=== PATIENT | male | born 1945 | race Caucasian/White ===

== ENCOUNTER 2022-01-29 12:48 | Emergency (ER) | payer MEDICARE, SELFPAY ==
--- NOTE | 2022-01-29 12:55 | XR_ITS ---
FINAL REPORT CLINICAL HISTORY: HAD MIDDLE FINGER SLAMMED IN CAR DOOR FINDINGS: 3 views of the right hand were obtained. There is a fracture of the base of the 3rd middle phalanx. The joint spaces are intact. There is no soft tissue abnormality. IMPRESSION: Nondisplaced fracture at the base of the 3rd middle phalanx. Reviewed, Interpreted and Dictated by Sánchez Curiel III, MD Transcribed by Alfonso Grullon Authenticated and [facility]
[2022-01-29 13:15] VITALS: BP 140/79; PULSE 76; RESP 18; TEMP 36.8; O2SAT 100; BMI 30.2
--- NOTE | 2022-01-29 13:43 | HMH.EDUTC ---
[facility] [place] Impression: Laceration Disposition: Home, Self-Care Condition on Discharge: Good Instructions: How to Care for a Laceration After Repair, Laceration Repair, DI for Finger Fracture, DI for Laceration Repair -- Simple Additional Instructions: Suture/Staple instructions: You have required stitches or Flory today. Please read the following instructions so you know how to care for them: 1. Keep wound area dry for the first 24 hours. 2 May clean gently with mild soap and water, after 48 hours to prevent crusting over suture knots. 3. You may shower if your provider gives permission but do not take a bath until the skin is healed.. 4. Never leave a wet dressing or Band-Aid on your stitches as this allows bacteria to reach the area and may cause infection. Band-aids can cause the wound to sweat and not recommended to wear for long periods of time Watch for signs of infection: Increasing redness, tenderness or warmth around the suture site Unusual swelling around the site Appearance of pus around each suture or any red streaks Fever If you develop any of the above signs or symptoms of infection, Follow up with Family Physician immediately 5. Suture removal in _12-14___days 6. Return to [facility] or follow up with family doctor for removal. This can be done by any medical provider during regular hours on Thursday through Thursday, by appointment. Follow up with Orthopedics as instructed Prescriptions: Amoxicillin/Potassium Clav [Augmentin 500mg tab] 500 mg PO TID #21 tab Transmission Status: Received by [facility] Referrals: Provider,Referral, [Primary Care Provider] - As needed Time of Disposition: 14:24 Medical Decision Making - [place] Inquiry Pt receiving controlled substance: No [place] was queried for this patient: No Vital Signs: 01/29/22 13:15 01/29/22 14:21 Temperature 98.2 F 98.2 F Temperature Source Oral Pulse Rate 76 Pulse Rate [Right Brachial] 76 Respiratory Rate 18 18 Blood Pressure 140/79 Blood Pressure [Right Arm] 140/79 Blood Pressure Mean [Right Arm] 99 Blood Pressure Source [Right Arm] Automatic Cuff Blood Pressure Position [Right Arm] Sitting 02 Sat by Pulse Oximetry 100 Oxygen Delivery Method Room Air - Radiology Data #1 Image(s): Hand Image Reviewed: Yes I have reviewed radiologist's interpretation IMPRESSION: Nondisplaced fracture at the base of the 3rd middle phalanx. Medical Decision Narrative: Patient states that he has taken augmentin in the past without complications or reactions Patient informed of fracture and advised to follow up with PCP/Orthopedics when he got home tomorrow [place] here [place] [facility] [place] - General Stated complaint: right hand laceration Time Seen by Provider: 01/29/22 13:25 Mode of Arrival: Ambulatory Source of Information: Patient Limitations: No Limitations Description of Symptoms (Recalled from Triage Doc. by RN): PATIENT C/O LACERATION TO RIGHT MIDDLE FINGER AFTER GETTING IT CAUGHT IN THE CAR DOOR HEENT Symptoms (Recalled from RN notes): No Resp Symptoms (Recalled from RN notes): No Skin Symptoms (Recalled from RN notes): Yes MS Symptoms (Recalled from RN notes): No Functional Status (Recalled from RN notes): WNL - History of Present Illness Provider Complaint: Patient state that his accidently shut his right middle finger up in the car door and he jerked his finger out States that he noticed he had a cut on his finger that looked like it may need sutures so he came in - Related Data Previous Rx's Medication Instructions Recorded Amoxicillin/Potassium Clav 500 mg PO TID #21 tab 01/29/22 [Augmentin 500mg tab] Allergies Allergy/AdvReac Type Severity Reaction Status Date / Time acetaminophen [From Percocet] Allergy Verified 01/29/22 13:29 oxycodone [From Percocet] Allergy Verified 01/29/22 13:29 tetanus and diphtheria Allergy Verified 01/29/22 13:29 to
[2022-01-29 14:21] VITALS: BP 140/79; PULSE 76; RESP 18; TEMP 36.8; O2SAT 100
== END 2022-01-29 14:41 | disposition home or self-care (01) ==
PROVIDERS: Emergency Provider Nurse Practitioner
DX: S61.212A Laceration without foreign body of right middle finger without damage to nail, initial encounter (principal); S62.642A Nondisplaced fracture of proximal phalanx of right middle finger, initial encounter for closed fracture; W23.0XXA Caught, crushed, jammed, or pinched between moving objects, initial encounter
CPT/HCPCS: 12001; 29131; 73130; 99212; G0463